=== PATIENT | female | born 1975 | race Caucasian/White ===

== ENCOUNTER 2018-05-28 10:38 | Inpatient (IN) | payer MEDICAID ==
[~2018-05-28] VITALS: Ht 160 cm; Wt 79.4 kg
[2018-05-28] MEDS ORDERED: TOPI25 PO (11:31)
[2018-05-28] MEDS ORDERED: PROP10TA73 PO (11:31)
[2018-05-28] MEDS ORDERED: NORT10 PO (11:31)
[2018-05-28 14:35] LABS: EOSINOPHILS % (AUTO) 1.3 % (1.0-6.0); HEMATOCRIT 44.3 % (36-46); HEMOGLOBIN 15.3 g/dL (12.0-16.0); LYMPHOCYTES # (AUTO) 2.5 K/uL (1.0-4.8); LYMPHOCYTES % (AUTO) 28.8 % (22.0-44.0); MEAN CORPUSCULAR HEMOGLOBIN 31.6 pg (26.0-34.0); MEAN CORPUSCULAR HGB CONC 34.7 G/dL (31.0-37.0); MEAN CORPUSCULAR VOLUME 91 fL (80-100); MONOCYTES # (AUTO) 0.5 K/uL (0.1-1.0); MONOCYTES % (AUTO) 5.6 % (2.0-9.0); NEUTROPHILS # (AUTO) 5.6 K/uL (1.8-7.7); NEUTROPHILS % (AUTO) 63.3 % (40.0-70.0); PLATELET COUNT (AUTO) 280 K/uL (150-450); RED BLOOD CELL COUNT(AUTO) 4.85 MIL/uL (4.00-5.20); RED CELL DISTRIBUTION WIDTH 12.8 % (11.5-14.5)
[2018-05-28] MEDS ORDERED: OLANZapine 5 MG RAPDIS TABLET PO PRN (14:45)
[2018-05-28] MEDS ORDERED: LORazepam 2 MG TABLET PO PRN (14:45)
[2018-05-28] MEDS ORDERED: ZOLPIDEM TARTRATE 10 MG TABLET PO PRN (14:45)
[2018-05-28 14:46] LABS: ANION GAP 10 mmol/L (8-16); CALCIUM, TOTAL 8.9 mg/dL (8.8-10.5); CARBON DIOXIDE 25 mmol/L (22-29); CHLORIDE 103 mmol/L (98-107); CREATININE 0.59 mg/dL (0.60-1.30); GLOMERULAR FILTR. RATE CALC > 60 mL/min (>60); GLUCOSE,RANDOM 94 mg/dL (70-110); POTASSIUM 3.6 mmol/L (3.5-5.1); SODIUM SERUM 138 mmol/L (136-145); UREA NITROGEN, BLOOD 7 mg/dL (7-18)
[2018-05-28 14:52] LABS: ALANINE AMINOTRANSFERASE 43 U/L (12-78); ALBUMIN 3.9 g/dL (3.4-5.0); ALKALINE PHOSPHATASE 156 U/L (46-116); ASPARTATE AMINOTRANSFERASE 29 U/L (15-37); BILIRUBIN,TOTAL 0.4 mg/dL (0.1-1.0); TOTAL PROTEIN, SERUM 7.7 g/dL (6.4-8.2)
[2018-05-28] MEDS ORDERED: IBUPROFEN 800 MG TABLET PO ONE (15:45)
[2018-05-28 18:24] VITALS: BP 112/73
[2018-05-28] MEDS ORDERED: PNEUMOCOCCAL VACCINE POLYVALENT 0.5 ML VIAL [PPSV23] IM ONE (18:30)
[2018-05-28] MEDS ORDERED: GuaiFENesin/D-METHORPHAN [SUGAR-FREE] 200-20MG/10 ML SYRUP UDCUP PO PRN (20:15)
[2018-05-28] MEDS ORDERED: MAG HYDROX/AL HYDROX/SIMETH ES 30 ML SUSPENSION UDCUP PO PRN (20:15)
[2018-05-28] MEDS ORDERED: ALBUTEROL SULFATE HFA 90 MCG/PUFF 8 GM INHALER IH PRN (20:15)
[2018-05-28] MEDS ORDERED: NICOTINE 14 MG/24 HOUR PATCH TD PRN (20:15)
[2018-05-28] MEDS ORDERED: ONDANSETRON HCL 4 MG TABLET PO PRN (20:15)
[2018-05-28] MEDS ORDERED: PETROLATUM,WHITE 71 GM JELLY TP PRN (20:15)
[2018-05-28] MEDS ORDERED: LOPERAMIDE HCL 2 MG CAPSULE PO PRN (20:15)
[2018-05-28] MEDS ORDERED: CloNIDine HCL 0.1 MG TABLET PO PRN (20:15)
[2018-05-29] MEDS: PROPRANOLOL HCL 10 MG TABLET PO SCH ×2 (08:28→16:40)
[2018-05-29] MEDS: TOPIRAMATE 25 MG TABLET PO SCH ×3 (08:28→16:40)
[2018-05-29 09:52] VITALS: BP 120/79
[2018-05-29] MEDS: IBUPROFEN 400 MG TABLET PO PRN ×2 (09:55→20:15)
[2018-05-29] MEDS: CITALOPRAM HYDROBROMIDE 20 MG TABLET PO SCH (13:55)
[2018-05-29] MEDS: BuPROPion HCL XL 150 MG ER TABLET PO SCH (13:55)
[2018-05-29] MEDS: MAGNESIUM HYDROXIDE SUSPENSION 30 ML UDCUP PO PRN (16:41)
[2018-05-29 20:15] VITALS: BP 123/75
[2018-05-30] MEDS: CITALOPRAM HYDROBROMIDE 20 MG TABLET PO SCH (09:04)
[2018-05-30] MEDS: BuPROPion HCL XL 150 MG ER TABLET PO SCH (09:04)
[2018-05-30] MEDS: TOPIRAMATE 25 MG TABLET PO SCH ×3 (09:04→17:59)
[2018-05-30] MEDS: PROPRANOLOL HCL 10 MG TABLET PO SCH ×2 (09:05→17:59)
[2018-05-30 09:06] VITALS: BP 96/68
[2018-05-30] MEDS: IBUPROFEN 400 MG TABLET PO PRN ×2 (09:08→20:00)
[2018-05-30 10:03] VITALS: BP 96/69
[2018-05-30 10:08] VITALS: BP 102/70
[2018-05-30 16:35] VITALS: BP 121/84
[2018-05-30] MEDS: DOCUSATE SODIUM 100 MG CAPSULE PO PRN (18:00)
[2018-05-30 21:58] VITALS: BP 120/80
[2018-05-31] MEDS: DOCUSATE SODIUM 100 MG CAPSULE PO PRN (06:45)
[2018-05-31 09:01] VITALS: BP 113/82
[2018-05-31] MEDS: BuPROPion HCL XL 150 MG ER TABLET PO SCH (09:02)
[2018-05-31] MEDS: TOPIRAMATE 25 MG TABLET PO SCH ×3 (09:02→17:32)
[2018-05-31] MEDS: PROPRANOLOL HCL 10 MG TABLET PO SCH ×2 (09:02→17:32)
[2018-05-31] MEDS: CITALOPRAM HYDROBROMIDE 20 MG TABLET PO SCH (09:04)
[2018-05-31] MEDS: MAGNESIUM HYDROXIDE SUSPENSION 30 ML UDCUP PO PRN (14:02)
[2018-05-31 17:09] VITALS: BP 110/56
[2018-06-01 08:33] VITALS: BP 99/65
[2018-06-01] MEDS: PROPRANOLOL HCL 10 MG TABLET PO SCH (09:15)
[2018-06-01] MEDS: TOPIRAMATE 25 MG TABLET PO SCH ×2 (09:15→13:11)
[2018-06-01] MEDS: CITALOPRAM HYDROBROMIDE 20 MG TABLET PO SCH (09:15)
[2018-06-01] MEDS: BuPROPion HCL XL 150 MG ER TABLET PO SCH (09:15)
[2018-06-01] MEDS ORDERED: BUPR-93 PO (13:44)
[2018-06-01] MEDS ORDERED: CITA-106 PO (13:45)
== END 2018-06-01 15:45 | disposition home or self-care (01) | DRG 751 ==
LOC: EMS 10:40 → 3EI 16:38
PROVIDERS: ADMIT Psychiatry & Neurology Psychiatry; ATTEND Psychiatry & Neurology Psychiatry
DX: F33.2 Major depressive disorder, recurrent severe without psychotic features (principal); R45.851 Suicidal ideations; F43.10 Post-traumatic stress disorder, unspecified; G43.909 Migraine, unspecified, not intractable, without status migrainosus; I10 Essential (primary) hypertension; Z91.5 Personal history of self-harm; Z88.8 Allergy status to other drugs, medicaments and biological substances; Z79.899 Other long term (current) drug therapy
CPT/HCPCS: 93005; G0480